=== PATIENT | male | born 1960 | race Hispanic/Latino ===

== ENCOUNTER 2023-04-21 05:35 | Day surgery (SDC) | payer BC ==
[~2023-04-21] VITALS: Ht 177.8 cm; Wt 93.2 kg
[2023-04-21 06:02] VITALS: BP 145/68
[2023-04-21] MEDS ORDERED: DICLOFENAC SODI75 MG PO (07:37)
[2023-04-21] MEDS ORDERED: HYDROCODON-ACE1 EA10 PO (07:37)
[2023-04-21 07:56] VITALS: BP 123/65
[2023-04-21 08:58] VITALS: BP 115/62
--- NOTE | 2023-04-21 09:00 | OR ---
[facility] [address], [place] [address] Signed DATE OF OPERATION: 04/21/2023 SURGEON: Melina Young MD PREOPERATIVE DIAGNOSIS: Medial meniscus tear, right knee. POSTOPERATIVE DIAGNOSIS: Medial meniscus tear, right knee. PROCEDURE PERFORMED: Right knee arthroscopy with partial medial meniscectomy. OUTSIDE MEDICAL SALES REPRESENTATIVE: None. ANESTHESIA: General. BLOOD LOSS: Minimal. BRIEF HISTORY: Bandar is a 62-year-old gentleman with pain and locking in his knee. MRI evidence of a large posterior complex tear. Risks and benefits of operative treatment were discussed with him. He elected to proceed. DESCRIPTION OF PROCEDURE: Once consent was obtained, he was taken to the operating room. After adequate anesthesia he was placed on the operating room table. All downside pressure points well padded. The right leg was placed in well-padded long leg andres and the left was flexed, abducted and externally rotated in leg andres. The leg was prepped and draped in a standard sterile fashion. The portals were injected with 0.25% Marcaine with epinephrine. The standard inferior lateral and superolateral portals were established and scope was introduced. ARTHROSCOPIC FINDINGS: Moderate synovitis was noted throughout the knee. The patellofemoral surfaces were intact. Medial and lateral gutters were clear. Lateral compartment was intact and the ACL and PCL were intact. Medial compartment showed diffuse grade 1 softening of the Electronically Signed By: MELINA YOUNG MD 04/21/23 0900 PATIENT NAME: BANDAR GUTIERREZ OPERATIVE REPORT DATE OF : 60 REPORT #: [id number] PHYSICIAN: MELINA YOUNG MD PCP: NO PRIMARY CARE PHYSICIAN REPORT IS CONFIDENTIAL AND NOT TO BE RELEASED WITHOUT AUTHORIZATION [facility] [address], [place] [address] Signed cartilage on both sides. There was a large horizontal with several radial components to it in the tear in the posterior meniscus. DESCRIPTION OF OPERATION: Standard inferomedial portal was made after localization with the needle. The straight and curved biters were then used to trim the meniscus back to a stable rim. The superior flap was debrided as was the inferior flap. The shaver was then used to smooth the debridement evacuate all the debris. The anterior aspect of the meniscal tear was then feathered out. The scope was then withdrawn. Portals were closed with 3-0 nylon. The knee was injected with 60 mg Toradol at the end of the case. The wounds were closed with 3-0 nylon and dressed with Adaptic, ABD, and Fred wrap. He tolerated the procedure well. All sponge, needle, and instrument counts were correct. Melina Young MD BA/HERNANL /[id number] Copies: ~ Electronically Signed By: MELINA YOUNG MD 04/21/23 0900 PATIENT NAME: BANDAR GUTIERREZ OPERATIVE REPORT DATE OF : 60 REPORT #: [id number] PHYSICIAN: MELINA YOUNG MD PCP: NO PRIMARY CARE PHYSICIAN REPORT IS CONFIDENTIAL AND NOT TO BE RELEASED WITHOUT AUTHORIZATION
== END 2023-04-21 09:20 | disposition home or self-care (01) ==
LOC: DS 05:35
PROVIDERS: ATTEND Specialist
PROC: 0SBC4ZZ Excision of Right Knee Joint, Percutaneous Endoscopic Approach (ICD-10-PCS; principal; 2023-04-21 07:00)
DX: S83.231A Complex tear of medial meniscus, current injury, right knee, initial encounter (principal); X58.XXXA Exposure to other specified factors, initial encounter
CPT/HCPCS: 01400; J0690; J1100; J1885; J2250; J2405; J2704; J2765; J3010; J7121